=== PATIENT | female | born 1950 ===

== ENCOUNTER 2022-08-12 07:26 | Day surgery (SDC) | payer OTHER ==
[~2022-08-12 07:26] MED LIST: B12 ACTIVE1000 MCG PO; CHILDREN'S ASPI81 MG PO; LIPITOR20 MG PO; MECLIZINE HCL12.5 MG PO; METFORMIN HCL500 M3 PO; OMEGA-31000 MG PO; VITAMIN C500 M6 PO
== END 2022-08-12 16:10 | disposition home or self-care (01) ==
LOC: CIR.AMB 07:26
PROVIDERS: ATTEND Colon & Rectal Surgery
DX: K64.2 Third degree hemorrhoids (principal); K64.4 Residual hemorrhoidal skin tags; K92.1 Melena; E11.9 Type 2 diabetes mellitus without complications; Z79.84 Long term (current) use of oral hypoglycemic drugs; Z20.822 Contact with and (suspected) exposure to COVID-19